=== PATIENT | female | born 1985 | race Caucasian/White ===

== ENCOUNTER 2021-09-19 14:08 | Emergency (ER) | payer MEDICAID, SELFPAY ==
--- NOTE | 2021-09-19 14:40 | USCV_ITS ---
Mirta Vieyra Age: 36 Gender: F : 1985 Exam Date: 09/19/2021 14:51 Ordering Phys: Timothy García MD Technologist: Patricia Hernandez Exam Location: [facility] [place] Indication: DVT HISTORY: Known DVT in 2016. Pt quit thinners in 2018 and now painful lt lower leg. PROCEDURES: Venous duplex imaging was performed in only the left lower extremity. The following venous structures were evaluated: common femoral vein, profunda vein, proximal portion of the greater saphenous vein, superficial femoral vein, and the popliteal vein. In addition, the posterior tibial and peroneal trunk were evaluated. Serial compression, augmentation maneuvers, and spectral Doppler flow evaluation were performed. FINDINGS: Normal 2-D Doppler and augmentation and compressibility throughout the lower extremity venous structures. Additional imaging through the proximal calf veins also reveals no thrombus. Limited evaluation of the greater saphenous vein is patent with no thrombus.. CONCLUSIONS No DVT left lower extremity. Dr. Alisha Tam DO (Electronically Signed) Final Date: 19 September 2021 16:48 S
[2021-09-19 15:05] VITALS: BP 134/82; PULSE 94; RESP 16; TEMP 36.4; O2SAT 100; BMI 30.7
--- NOTE | 2021-09-19 17:56 | W.ED.EXTPRO ---
HPI - Extremity Problem General: Chief complaint: Extremity Injury, Lower Stated complaint: sent to ER per /possible bloodclot Time Seen by Provider: 09/19/21 17:38 Source: patient Mode of arrival: ambulatory Limitations: no limitations History of Present Illness: Patient is a 36-year-old female who presents to ED today after being seen at a walk-in facility for concerns of left lower leg pain and swelling. Patient tells me she has a history of factor V deficiency and has had previous thrombus in the past. She states she used to take warfarin but stopped taking this medication due to situational issues. Patient states prior to pain starting she did do a walk for the [employer] event and states she walked 14 miles. Patient is not having any shortness of breath, chest pain, difficulty breathing. MD Complaint: extremity pain and extremity swelling Onset (ago): day(s) Pain Consistency: constant Radiation: none Relieving factors: nothing Associated symptoms: Reports no associated symptoms; Deny chest pain, fever(s) or rash Context: other (hx of factor V) Review of Systems Const: Denies: fever(s), chills, body aches, fatigue or malaise Card: Denies: chest pain, palpitations, swelling of feet/ankles or lightheadedness Resp: Denies: dyspnea GI: Denies: abdominal pain Musc: Reports: extremity pain and extremity swelling; Denies: neck pain, back pain, joint pain, joint swelling, joint redness, joint warmth or limited range of motion Skin/Breast: Denies: rash Neuro: Denies: numbness in extremities or sensory changes [facility] ED PFSH: Social History Smoking and tobacco status: current every day smoker (3-5 cigarettes daily) cigarettes Physical Exam Const: COMMON NORMALS: no acute distress, patient oriented x3, no limitations, alert and well nourished GENERAL APPEARANCE: cooperative ORIENTATION/CONSCIOUSNESS: Yes awake, Yes oriented to person, Yes oriented to place and Yes oriented to time HENMT: COMMON NORMALS: normocephalic and atraumatic HEAD & SCALP: normocephalic and atraumatic Resp: COMMON NORMALS: normal respiratory effort and clear to auscultation bilaterally AUSCULTATION: clear to auscultation bilaterally Cardio: COMMON NORMALS: regular rate and regular rhythm RATE: regular rate RHYTHM: regular rhythm Extremity: COMMON NORMALS: full ROM, capillary refill normal and no pedal edema GENERAL: Yes normal exam except as noted LEFT LOWER EXTREMITY: Yes lower leg OTHER: pt has mild diffse swelling throughout L lower leg when compared to R; no palpable cords; her calf is supple; she has normal pulses/cap refill/sensation Neuro: ZAYRA COMA SCALE: document GCS findings [place] coma scale eye opening: Spontaneous [place] coma scale verbal response: Orientated Zayra coma scale motor response: Obey commands [place] coma scale total score: 15 COMMON NORMALS: patient oriented x3, moves all extremities, no focal motor deficits and no sensory deficits noted SENSORIUM/ORIENTATION: Yes alert, Yes oriented to person, Yes oriented to place and Yes oriented to time Skin: COMMON NORMALS: no rashes or lesions noted GENERAL SKIN EXAM: no rashes or lesions noted TRAUMA: no lacerations or abrasions Course Vital Signs: Vital signs: Vital Signs Temperature 97.5 F L 09/19/21 18:18 Pulse Rate 89 09/19/21 18:18 Respiratory Rate 16 09/19/21 18:18 Blood Pressure 123/69 09/19/21 18:18 Pulse Oximetry 100 09/19/21 18:18 MDM - Extremity (Nontraumatic) Medical Decision Making I spoke to Dr. Soler as he took report from Dr. Stanley at the outside clinic. Patient has no DVT on her ultrasound today. He did not recommend starting patient on anticoagulation from the ED for her Factor V. We will place referral for hematology for further evaluation and treatment. She also states she has an upcoming appointment with primary care/Dr. Altamirano. Strict return to ED precautions given. Discharge Plan Discharge Patient Disposition: Home Clinical Impression: Factor V deficiency, Pain of left calf Condition: Stable Prescriptions: No Action gabapentin 300 mg capsule 300 mg PO TID Qty: 90 0RF Discharge Orders: Discharge ED (Routine); Ordered 09/19/21 Ordered By: Hope Gallagher Coding Level of Care Code ED Broadcaster for Jacek Villeda
[2021-09-19 18:18] VITALS: BP 123/69; PULSE 89; RESP 16; TEMP 36.4; O2SAT 100
--- NOTE | 2021-09-20 19:35 | DCPLANNER ---
Addendum entered by Merari Roth 11/13/21 06:05: Patient had a follow up appointment scheduled for 11.01.[address] Gallagher - patient did attend appointment. Addendum entered by Merari Roth 09/29/21 10:01: Patient has a follow up appointment scheduled for Monday, November 01, 2021 at 3:[address] Gallagher at oncology. Clinic will call patient with appointment information. Original Note: park recreation manager had message to schedule a follow up appointment for patient with hematology. park recreation manager sent an email to Cate Brooks, service center coordinator [facility]. Patients information will be printed and reviewed. Clinic will call patient with appointment information.
== END 2021-09-19 18:19 | disposition home or self-care (01) ==
PROVIDERS: Emergency Provider Physician Assistant
DX: M79.662 Pain in left lower leg (principal); D68.51 Activated protein C resistance; F17.210 Nicotine dependence, cigarettes, uncomplicated
CPT/HCPCS: 93971; 99282

== ENCOUNTER 2021-11-01 14:11 | Oncology outpatient (recurring) (ONCR) | payer MEDICAID, SELFPAY | END 2021-11-24 23:59 | disposition home or self-care (01) | PROVIDERS: Visit Provider Internal Medicine Medical Oncology | DX: D68.51 Activated protein C resistance (principal); I74.9 Embolism and thrombosis of unspecified artery; I87.2 Venous insufficiency (chronic) (peripheral); Z79.01 Long term (current) use of anticoagulants; Z79.899 Other long term (current) drug therapy | CPT/HCPCS: 99204 ==

== ENCOUNTER → 2021-11-21 11:09 | Outpatient (BNVA) | payer MEDICAID, SELFPAY | PROVIDERS: Visit Provider Family Medicine | DX: M79.605 Pain in left leg (principal); I87.8 Other specified disorders of veins; G89.29 Other chronic pain; G25.81 Restless legs syndrome; D68.51 Activated protein C resistance; Z86.718 Personal history of other venous thrombosis and embolism; F41.1 Generalized anxiety disorder; Z76.89 Persons encountering health services in other specified circumstances | CPT/HCPCS: 80053; 84443; 85025 ==

== ENCOUNTER → 2021-12-16 09:48 | Outpatient (BNVA) | payer MEDICAID, SELFPAY | PROVIDERS: PCP Family Medicine; Visit Provider Emergency Medicine | DX: B34.9 Viral infection, unspecified (principal); Z20.822 Contact with and (suspected) exposure to COVID-19 | CPT/HCPCS: 87635 ==

== ENCOUNTER → 2022-02-28 12:41 | Outpatient (BNVA) | payer MEDICAID, SELFPAY | PROVIDERS: PCP Family Medicine; Visit Provider Family Medicine | DX: D68.51 Activated protein C resistance (principal) | CPT/HCPCS: 85610 ==

== ENCOUNTER → 2022-04-10 15:57 | Outpatient (BNVA) | payer MEDICAID, SELFPAY | PROVIDERS: PCP Family Medicine; Visit Provider Nurse Practitioner Family | DX: Z86.718 Personal history of other venous thrombosis and embolism (principal); H65.193 Other acute nonsuppurative otitis media, bilateral | CPT/HCPCS: 85610 ==

== ENCOUNTER → 2022-04-24 09:52 | Outpatient (BNVA) | payer MEDICAID, SELFPAY | PROVIDERS: PCP Family Medicine; Visit Provider Family Medicine | DX: Z86.718 Personal history of other venous thrombosis and embolism (principal); D68.51 Activated protein C resistance; F41.1 Generalized anxiety disorder; G89.29 Other chronic pain; M79.605 Pain in left leg; I87.8 Other specified disorders of veins; G25.81 Restless legs syndrome; R10.2 Pelvic and perineal pain | CPT/HCPCS: 72202; 85610 ==

== ENCOUNTER → 2022-05-15 15:52 | Outpatient (BNVA) | payer MEDICAID, SELFPAY | PROVIDERS: PCP Family Medicine; Visit Provider Family Medicine | DX: Z12.4 Encounter for screening for malignant neoplasm of cervix (principal); Z86.718 Personal history of other venous thrombosis and embolism; Z79.01 Long term (current) use of anticoagulants | CPT/HCPCS: 85610; 87491; 87591; 87624; 87661 ==

== ENCOUNTER → 2022-07-03 11:43 | Outpatient (BNVA) | payer MEDICAID, SELFPAY | PROVIDERS: PCP Family Medicine; Visit Provider Family Medicine | DX: Z86.718 Personal history of other venous thrombosis and embolism (principal); D68.51 Activated protein C resistance; Z12.4 Encounter for screening for malignant neoplasm of cervix; F32.A Depression, unspecified; F41.8 Other specified anxiety disorders; A59.00 Urogenital trichomoniasis, unspecified; F41.1 Generalized anxiety disorder | CPT/HCPCS: 85610; 87624 ==

== ENCOUNTER → 2022-07-31 08:55 | Outpatient (BNVA) | payer MEDICAID, SELFPAY | PROVIDERS: PCP Family Medicine; Visit Provider Family Medicine | DX: Z86.718 Personal history of other venous thrombosis and embolism (principal); R30.0 Dysuria; Z79.01 Long term (current) use of anticoagulants; F32.A Depression, unspecified; F41.1 Generalized anxiety disorder; Z68.35 Body mass index [BMI] 35.0-35.9, adult | CPT/HCPCS: 81000; 85610 ==

== ENCOUNTER → 2022-08-07 16:28 | Outpatient (BNVA) | payer MEDICAID, SELFPAY | PROVIDERS: PCP Family Medicine; Visit Provider Family Medicine | DX: Z79.01 Long term (current) use of anticoagulants (principal) | CPT/HCPCS: 85610 ==

== ENCOUNTER → 2022-08-22 09:16 | Outpatient (BNVA) | payer MEDICAID, SELFPAY | PROVIDERS: PCP Family Medicine; Visit Provider Family Medicine | DX: Z79.01 Long term (current) use of anticoagulants (principal); D68.51 Activated protein C resistance | CPT/HCPCS: 85610 ==

== ENCOUNTER → 2022-10-12 15:50 | Outpatient (BNVA) | payer MEDICAID, SELFPAY | PROVIDERS: PCP Family Medicine; Visit Provider Nurse Practitioner Family | DX: Z79.01 Long term (current) use of anticoagulants (principal) | CPT/HCPCS: 85610 ==

== ENCOUNTER → 2022-10-30 15:02 | Outpatient (BNVA) | payer MEDICAID, SELFPAY | PROVIDERS: PCP Family Medicine; Visit Provider Family Medicine | DX: Z86.718 Personal history of other venous thrombosis and embolism (principal); D68.51 Activated protein C resistance | CPT/HCPCS: 85610 ==

== ENCOUNTER → 2023-01-19 10:17 | Outpatient (BNVA) | payer MEDICAID, SELFPAY | PROVIDERS: PCP Family Medicine; Visit Provider Nurse Practitioner Family | DX: M48.54XA Collapsed vertebra, not elsewhere classified, thoracic region, initial encounter for fracture (principal); W19.XXXA Unspecified fall, initial encounter | CPT/HCPCS: 72100 ==

== ENCOUNTER → 2023-02-22 08:32 | Outpatient (BNVA) | payer MEDICAID, SELFPAY | PROVIDERS: PCP Family Medicine; Visit Provider Family Medicine | DX: Z86.718 Personal history of other venous thrombosis and embolism (principal); Z79.01 Long term (current) use of anticoagulants; Z13.1 Encounter for screening for diabetes mellitus; Z13.220 Encounter for screening for lipoid disorders; Z13.6 Encounter for screening for cardiovascular disorders; Z51.81 Encounter for therapeutic drug level monitoring | CPT/HCPCS: 85025; 85610 ==

== ENCOUNTER → 2023-04-08 14:59 | Outpatient (BNVA) | payer MEDICAID, SELFPAY | PROVIDERS: PCP Family Medicine; Visit Provider Nurse Practitioner | DX: R52 Pain, unspecified (principal); B34.9 Viral infection, unspecified; K59.00 Constipation, unspecified | CPT/HCPCS: 87400 ==

== ENCOUNTER → 2023-07-04 11:50 | Outpatient (BNVA) | payer MEDICAID, SELFPAY | PROVIDERS: PCP Nurse Practitioner Family; Visit Provider Nurse Practitioner Family | DX: D68.51 Activated protein C resistance (principal); Z86.718 Personal history of other venous thrombosis and embolism; R53.83 Other fatigue | CPT/HCPCS: 85610 ==

== ENCOUNTER → 2023-07-19 12:12 | Outpatient (BNVA) | payer MEDICAID, SELFPAY | PROVIDERS: PCP Nurse Practitioner Family; Visit Provider Nurse Practitioner Family | DX: Z51.81 Encounter for therapeutic drug level monitoring (principal); Z79.01 Long term (current) use of anticoagulants | CPT/HCPCS: 85025; 85610 ==

== ENCOUNTER → 2023-11-05 13:15 | Outpatient (BNVA) | payer MEDICAID, SELFPAY | PROVIDERS: PCP Nurse Practitioner Family; Visit Provider Nurse Practitioner Family | DX: D68.51 Activated protein C resistance (principal) | CPT/HCPCS: 85610 ==

== ENCOUNTER → 2024-03-21 10:35 | Outpatient (BNVA) | payer MEDICAID, SELFPAY | DX: D68.51 Activated protein C resistance (principal) | CPT/HCPCS: 80053; 85610 ==

== ENCOUNTER → 2025-04-07 10:15 | Outpatient (BNVA) | payer MEDICAID, SELFPAY | DX: N91.2 Amenorrhea, unspecified (principal); Z79.01 Long term (current) use of anticoagulants | CPT/HCPCS: 80053; 81000; 84443; 85025; 85610 ==

== ENCOUNTER → 2025-04-27 13:06 | Outpatient (BNVA) | payer SELFPAY | PROVIDERS: Visit Provider Nurse Practitioner | DX: J02.9 Acute pharyngitis, unspecified (principal); R05.9 Cough, unspecified | CPT/HCPCS: 87071; 87400; 87426; 87880 ==

== ENCOUNTER 2025-05-01 15:26 | Outpatient (CLI) | payer MEDICAID, SELFPAY ==
--- NOTE | 2025-05-01 15:30 | USR_ITS ---
PROCEDURE INFORMATION: Exam: US Pelvis Transabdominal, Complete, and US Pelvis Transvaginal, Non-obstetric Exam date and time: 05/01/2025 3:37 PM Age: 39 years old Clinical indication: Pelvic pain TECHNIQUE: Imaging protocol: Real-time complete transabdominal and transvaginal pelvic ultrasound (non-obstetric) with image documentation. Transvaginal imaging was used for better evaluation of the endometrium, adnexa, and/or cervix. COMPARISON: CR XR sacroiliac jts m 3V [id number] 04/24/2022 10:03 AM FINDINGS: Uterus: Cystic, heterogenous endometrium without thickening. Endometrial myometrial junction is slightly ill-defined. Heterogeneous appearance of the myometrium. Right ovary/adnexa: Ovary is normal. No mass. Normal arterial and venous waveforms on duplex. Left ovary/adnexa: Ovary is normal. No mass. Normal arterial and venous waveforms on duplex. Intraperitoneal space: No intraperitoneal fluid. US/US pelv w/transvag [id number] IMPRESSION: Heterogenous endometrium and myometrium with indistinct endometrial myometrial junction. Findings are nonspecific but can be seen in the setting of diffuse myometrial changes, such as adenomyosis. Recommend clinical correlation. MRI of the pelvis may be helpful for definitive characterization clinically indicated.
== END 2025-05-01 15:27 | disposition home or self-care (01) ==
LOC: RAD 15:28
DX: R10.20 Pelvic and perineal pain unspecified side (principal); N85.8 Other specified noninflammatory disorders of uterus
CPT/HCPCS: 76830; 76856